=== PATIENT | female | born 1965 | race African-American/Black ===

== ENCOUNTER 2017-02-10 08:15 | Outpatient (RCR) ==
[2016-02-15 21:44] VITALS: BMI 25.8
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
--- NOTE | 2017-02-10 10:35 | RS.OPPTDN ---
Subjective Date of Note: 02/10/17 Visit #: 2 Date of Evaluation: 02/07/17 Payer Source: Insurance Treatment Diagnosis: Right shoulder pain, Low back pain Current Subjective/complaints:: Reports she is doing her HEP. Pain Assessment - Pain Description Pain Location: right shoulder and low back Pain Description: Sharp, Dull, Aching Current Pain Intensity: 5/10 right shoulder Other Comments regarding Pain:: R shoulder sharp pain is position dependent - Heat/Cryotherapy Treatment: Hot Pack (20 mins. prior to exercises,in supine ) Interventions - Exercise/Activities/Manual Therapy Exercises/Activities: 40 mins. total of lumbar exercises,including pelvic tilts, SKTC,DKTC,piriformis stretches.R shoulder PROM ,progressed to AAROM in all planes.Patient education for pain management/joint protection. Total minutes of Exercise: 40 Manual Therapy: N/A Total minutes of Manual Therapy: 0 HOME EXERCISE PROGRAM: pendulum, scapular retraction, and RTC series without weight in a pain-free range,HS and piriformis stretch. - Charges Total Direct Minutes: 40 Total Treatment Time: 60 Procedures billed for this date of service:: hp,ex 3 Assessment: Patient tolerates all lumbarexercises well,reports stretch disconfort only,no sharp pain.She is tighter in the R LE/lumbar ,as opposed to the L LE.She has functional passive ROM in the R shoulder,but has sharp pain present with active IR/ER ,with symptom of possible labrum injury. Patient Education: Education of diagnosis, Body/Joint mechanics, Home Exercise Program, Home Safety, Activity Modification, Education of Plan of Care Patient demonstrates compliance with HEP?: Yes Short Term Goals Goal #1: Pt independent in basic HEP. Goal to be met by: 02/22/17 Progress towards Goal:: Progressing Goal #2: Right SLR to 45 degrees. Goal to be met by: 02/22/17 Goal #3: Right shoulder strength 4/5 into ER/IR. Goal to be met by: 02/22/17 Goal #4: Right hip flexion 5/5. Goal to be met by: 02/22/17 Welding Foreman Goals Goal #1: Pt able to use right UE for ADL's & selfcare with minimal shoulder pain. Goal to be met by: 03/20/17 Goal #2: Pt able to tolerate sitting as needed with minimal low back discomfort. Goal to be met by: 03/20/17 Goal #3: Pt knows HEP and to cont. ex's to maintain functional level at D/C. Goal to be met by: 03/20/17 Progress towards goal: Progressing Goal #4: Pt able to sleep 6 hours without interruption from shoulder or back pain. Goal to be met by: 03/20/17 Plan PLAN OF CARE EXPIRES ON:: 03/20/17 ORDER # VISITS AND/OR THROUGH DATE: 03/20/17 PLAN: Continue Plan of Care
== END 2017-02-12 ==
PROVIDERS: ATTEND Orthopaedic Surgery
DX: M19.011 Primary osteoarthritis, right shoulder (principal); M54.2 Cervicalgia

== ENCOUNTER 2017-03-14 08:00 | Outpatient (RCR) ==
[2016-02-15 21:44] VITALS: BMI 25.8
--- NOTE | 2017-02-14 09:28 | RS.OPPTDN ---
Subjective Date of Note: 02/14/17 Visit #: 3 Date of Evaluation: 02/07/17 Payer Source: Insurance Treatment Diagnosis: Right shoulder pain, Low back pain Current Subjective/complaints:: Reports getting out of her car this morning caused sharp pain for a brief period ,but less now. Pain Assessment - Pain Description Pain Location: right shoulder and low back Current Pain Intensity: not rated today - Heat/Cryotherapy Treatment: Hot Pack (20 mins. to R shoulder and lumbar prior to exercises) Interventions - Exercise/Activities/Manual Therapy Exercises/Activities: 45 mins. total of lumbar exercises,including 3/10 , pelvic tilts,SKTC,DKTC,piriformis stretches.R shoulder PROM ,progressed to AAROM ,then AROM with 3# wand ,then 1# dumbbell for shoulder IR/ER,scaption , chest press,RTC series.Ended with patient ed. for postural exercises/scapular motion. Total minutes of Exercise: 45 Manual Therapy: N/A Total minutes of Manual Therapy: 0 HOME EXERCISE PROGRAM: pendulum, scapular retraction, and RTC series without weight in a pain-free range,HS and piriformis stretch. - Charges Total Direct Minutes: 45 Total Treatment Time: 65 Procedures billed for this date of service:: hp,ex 3 Assessment: Patient tolerate sexercises well today,has R shoulder ROM WNL,with stretch discomfort only today.She has lumbar stretch discomfort ,mostly with R piriformis stretches today.She is very pro-active ,compliant to HEP. Patient Education: Education of diagnosis, Body/Joint mechanics, Home Exercise Program, Home Safety, Activity Modification, Education of Plan of Care Patient demonstrates compliance with HEP?: Yes Short Term Goals Goal #1: Pt independent in basic HEP. Goal to be met by: 02/22/17 Progress towards Goal:: Progressing Goal #2: Right SLR to 45 degrees. Goal to be met by: 02/22/17 Progress towards Goal:: Met Goal #3: Right shoulder strength 4/5 into ER/IR. Goal to be met by: 02/22/17 Progress towards Goal:: Progressing Goal #4: Right hip flexion 5/5. Goal to be met by: 02/22/17 Hydraulic Oil Tool Operator Goals Goal #1: Pt able to use right UE for ADL's & selfcare with minimal shoulder pain. Goal to be met by: 03/20/17 Goal #2: Pt able to tolerate sitting as needed with minimal low back discomfort. Goal to be met by: 03/20/17 Progress towards goal: Progressing Goal #3: Pt knows HEP and to cont. ex's to maintain functional level at D/C. Goal to be met by: 03/20/17 Progress towards goal: Progressing Goal #4: Pt able to sleep 6 hours without interruption from shoulder or back pain. Goal to be met by: 03/20/17 Plan PLAN OF CARE EXPIRES ON:: 03/20/17 ORDER # VISITS AND/OR THROUGH DATE: 03/20/17 PLAN: Continue Plan of Care
--- NOTE | 2017-02-17 09:30 | RS.OPPTDN ---
Subjective Date of Note: 02/17/17 Visit #: 4 Date of Evaluation: 02/07/17 Payer Source: Insurance Treatment Diagnosis: Right shoulder pain, Low back pain Current Subjective/complaints:: Reports the shoulder is oay at this time ,but her back is hurting more ,especially getting out of bed ,or her car.She is doing her HEP regularly. Pain Assessment - Pain Description Pain Location: right shoulder and low back Current Pain Intensity: not rated today - Heat/Cryotherapy Treatment: Hot Pack (20 mins. to R shoulder and low back) Interventions - Exercise/Activities/Manual Therapy Exercises/Activities: 45 mins. total of lumbar exercises,including 3/10 , pelvic tilts,SKTC,DKTC,piriformis stretches.R shoulder PROM ,progressed to AAROM ,then AROM with 3# wand ,then 2# dumbbell for shoulder IR/ER,scaption , chest press,RTC series.Scapular protraction ( boxers punch) in supine. Total minutes of Exercise: 45 Manual Therapy: N/A Total minutes of Manual Therapy: 0 HOME EXERCISE PROGRAM: pendulum, scapular retraction, and RTC series without weight in a pain-free range,HS and piriformis stretch. - Charges Total Direct Minutes: 45 Total Treatment Time: 65 Procedures billed for this date of service:: hp,ex 3 Assessment: Patient tolerates exercises well,has increased tightness today in the R piriformis and IT band today.She has good hamstring extensiblity bilaterally.The R shoulder is WNL ,but intermittent pain during IR/ER ,behaving as possible labrum involvement. Patient Education: Education of diagnosis, Body/Joint mechanics, Home Exercise Program, Home Safety, Activity Modification, Education of Plan of Care Patient demonstrates compliance with HEP?: Yes Short Term Goals Goal #1: Pt independent in basic HEP. Goal to be met by: 02/22/17 Progress towards Goal:: Partially Met Goal #2: Right SLR to 45 degrees. Goal to be met by: 02/22/17 Progress towards Goal:: Met Goal #3: Right shoulder strength 4/5 into ER/IR. Goal to be met by: 02/22/17 Progress towards Goal:: Progressing Goal #4: Right hip flexion 5/5. Goal to be met by: 02/22/17 Progress towards Goal:: Progressing Configuration Release Manager Goals Goal #1: Pt able to use right UE for ADL's & selfcare with minimal shoulder pain. Goal to be met by: 03/20/17 Progress towards goal: Progressing Goal #2: Pt able to tolerate sitting as needed with minimal low back discomfort. Goal to be met by: 03/20/17 Progress towards goal: Progressing Goal #3: Pt knows HEP and to cont. ex's to maintain functional level at D/C. Goal to be met by: 03/20/17 Progress towards goal: Progressing Goal #4: Pt able to sleep 6 hours without interruption from shoulder or back pain. Goal to be met by: 03/20/17 Plan PLAN OF CARE EXPIRES ON:: 03/20/17 ORDER # VISITS AND/OR THROUGH DATE: 03/20/17 PLAN: Progress Exercises
--- NOTE | 2017-02-20 09:34 | RS.OPPTDN ---
Subjective Date of Note: 02/20/17 Visit #: 5 Date of Evaluation: 02/07/17 Payer Source: Insurance Treatment Diagnosis: Right shoulder pain, Low back pain Current Subjective/complaints:: Patient reports the R shoulder is doing well today ,but her back continues to have intense,sudden pain with certain positions. Pain Assessment - Pain Description Pain Location: right shoulder and low back Current Pain Intensity: not rated today - Heat/Cryotherapy Treatment: Hot Pack (20 mins. to R shoulder and lumbar area) Interventions - Exercise/Activities/Manual Therapy Exercises/Activities: 45 mins. total of lumbar exercises,including therapy ball exercises,in sitting for alternate UE/LE,also in standing for same exercises.Supine stretches of SKTC,DKTC,pelvic tilts,90/90 hamstring stretches.Multi -gym postural pullbacks ,3/10 for 2 different heights(waist level and pull down from overhead),then yellow theraband for standing pull-ups with elbows in full extension. Total minutes of Exercise: 45 Manual Therapy: N/A Total minutes of Manual Therapy: 0 HOME EXERCISE PROGRAM: pendulum, scapular retraction, and RTC series without weight in a pain-free range,HS and piriformis stretch. - Charges Total Direct Minutes: 45 Total Treatment Time: 65 Procedures billed for this date of service:: hp,ex 3 Assessment: Patient tolerates exercises well,reports he rback pain is intense at times with ADL's ,dependent upon position,but has no ROM deficits with lumbar motion today.The R shoulder/UE fatigues easily with resistive exercises.She is aware of the R shoullder damage ,understands to always use light resistance while exercising.She is highly motivated to improve. Patient Education: Education of diagnosis, Body/Joint mechanics, Home Exercise Program, Home Safety, Activity Modification, Education of Plan of Care Patient demonstrates compliance with HEP?: Yes Short Term Goals Goal #1: Pt independent in basic HEP. Goal to be met by: 02/22/17 Progress towards Goal:: Partially Met Goal #2: Right SLR to 45 degrees. Goal to be met by: 02/22/17 Progress towards Goal:: Met Goal #3: Right shoulder strength 4/5 into ER/IR. Goal to be met by: 02/22/17 Progress towards Goal:: Progressing Goal #4: Right hip flexion 5/5. 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 Goal to be met by: 03/20/17 Progress towards goal: Progressing Goal #2: Pt able to tolerate sitting as needed with minimal low back discomfort. Goal to be met by: 03/20/17 Progress towards goal: Partially Met Goal #3: Pt knows HEP and to cont. ex's to maintain functional level at D/C. Goal to be met by: 03/20/17 Progress towards goal: Met Goal #4: Pt able to sleep 6 hours without interruption from shoulder or back pain. Goal to be met by: 03/20/17 (N/A) Plan PLAN OF CARE EXPIRES ON:: 03/20/17 ORDER # VISITS AND/OR THROUGH DATE: 03/20/17 PLAN: Progress Exercises
--- NOTE | 2017-02-24 10:21 | RS.OPPTDN ---
Subjective Date of Note: 02/24/17 Visit #: 6 Date of Evaluation: 02/07/17 Payer Source: Insurance Treatment Diagnosis: Right shoulder pain, Low back pain Current Subjective/complaints:: Reports increased aching and back pain today, she feels possibly this is due to the rainy weather. Pain Assessment - Pain Description Pain Location: right shoulder and low back Pain Description: Sharp, Dull, Aching Current Pain Intensity: moderate at rest Worst Pain Intensity: 10 in the back with certain positions,such as getting out of bed or the car - Heat/Cryotherapy Treatment: Hot Pack (20 mins. to R shoulder and lumbar area in supine) Interventions - Exercise/Activities/Manual Therapy Exercises/Activities: 35 mins. total of lumbar exercises,including supine DKTC, pelvic tilts,pelvic tilts combined with SLR's for core strengthening.Prone stretches to hip flexors,prone on elbows.Quadruped position of cat back stretches.HEP review and pain management. Total minutes of Exercise: 35 Manual Therapy: N/A Total minutes of Manual Therapy: 0 HOME EXERCISE PROGRAM: pendulum, scapular retraction, and RTC series without weight in a pain-free range,HS and piriformis stretch. - Charges Total Direct Minutes: 35 Total Treatment Time: 55 Procedures billed for this date of service:: hp,ex 2 Assessment: Patient has increased hip flexor tightness,as compared to the L,but responds well to all stretches.She also reports increased tightness with supine stretches today. Patient Education: Education of diagnosis, Body/Joint mechanics, Home Exercise Program, Home Safety, Activity Modification, Education of Plan of Care Patient demonstrates compliance with HEP?: Yes Short Term Goals Goal #1: Pt independent in basic HEP. Goal to be met by: 02/22/17 Progress towards Goal:: Met Goal #2: Right SLR to 45 degrees. Goal to be met by: 02/22/17 Progress towards Goal:: Met Goal #3: Right shoulder strength 4/5 into ER/IR. Goal to be met by: 02/22/17 Progress towards Goal:: Progressing Goal #4: Right hip flexion 5/5. Goal to be met by: 02/22/17 Progress towards Goal:: Progressing Family Services Coordinator Goals Goal #1: Pt able to use right UE for ADL's & selfcare with minimal shoulder pain. Goal to be met by: 03/20/17 Goal #2: Pt able to tolerate sitting as needed with minimal low back discomfort. Goal to be met by: 03/20/17 Progress towards goal: Partially Met Goal #3: Pt knows HEP and to cont. ex's to maintain functional level at D/C. Goal to be met by: 03/20/17 Progress towards goal: Met Goal #4: Pt able to sleep 6 hours without interruption from shoulder or back pain. Goal to be met by: 03/20/17 (N/A) Plan PLAN OF CARE EXPIRES ON:: 03/20/17 ORDER # VISITS AND/OR THROUGH DATE: 03/20/17 PLAN: Continue Plan of Care
--- NOTE | 2017-03-03 09:24 | RS.OPPTDN ---
Subjective Date of Note: 03/03/17 Visit #: 7 Date of Evaluation: 02/07/17 Payer Source: Insurance Treatment Diagnosis: Right shoulder pain, Low back pain Current Subjective/complaints:: Patient reports the back is better today,as compared to earlier in the week.The shoulder pain is about the same,but has learned to tolerate the pain.She is highly motivated to improve. Pain Assessment - Pain Description Pain Location: right shoulder and low back Pain Description: Dull, Aching Current Pain Intensity: R shoulder 3/10,back is 5/10 - Heat/Cryotherapy Treatment: Hot Pack (20 mins. prior to exercises) Interventions - Exercise/Activities/Manual Therapy Exercises/Activities: 40 mins. total of lumbar exercises,including supine DKTC, pelvic tilts,pelvic tilts combined with SLR's for core strengthening. 4# weights for bilateral hip flexion in hooklying and 4-pt.quads,3/15 reps.Isometric hip abd/add,3/5 each. Total minutes of Exercise: 40 Manual Therapy: N/A Total minutes of Manual Therapy: 0 HOME EXERCISE PROGRAM: pendulum, scapular retraction, and RTC series without weight in a pain-free range,HS and piriformis stretch. - Charges Total Direct Minutes: 40 Total Treatment Time: 60 Procedures billed for this date of service:: hp,ex 3 Assessment: Progressing well,for low back care.The R shoulder is basically the same ,continues to have functional motion ,and understands we will not progress the resistance for strengthening as she has RTC tear. Patient Education: Education of diagnosis, Body/Joint mechanics, Home Exercise Program, Home Safety, Activity Modification, Education of Plan of Care Patient demonstrates compliance with HEP?: Yes Short Term Goals Goal #1: Pt independent in basic HEP. Goal to be met by: 02/22/17 Progress towards Goal:: Met Goal #2: Right SLR to 45 degrees. Goal to be met by: 02/22/17 Progress towards Goal:: Met Goal #3: Right shoulder strength 4/5 into ER/IR. Goal to be met by: 02/22/17 Progress towards Goal:: No Change Comments:: Patient to use caution due RTC tear,no progressive resistance Goal #4: Right hip flexion 5/5. 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 Goal to be met by: 03/20/17 Progress towards goal: Progressing Goal #2: Pt able to tolerate sitting as needed with minimal low back discomfort. Goal to be met by: 03/20/17 Progress towards goal: Partially Met Goal #3: Pt knows HEP and to cont. ex's to maintain functional level at D/C. Goal to be met by: 03/20/17 Progress towards goal: Met Goal #4: Pt able to sleep 6 hours without interruption from shoulder or back pain. Goal to be met by: 03/20/17 (N/A) Plan PLAN OF CARE EXPIRES ON:: 03/20/17 ORDER # VISITS AND/OR THROUGH DATE: 03/20/17 PLAN: Continue Plan of Care
--- NOTE | 2017-03-08 11:00 | RS.OPPTDN ---
Subjective Date of Note: 03/08/17 Visit #: 8 Date of Evaluation: 02/07/17 Payer Source: Insurance Treatment Diagnosis: Right shoulder pain, Low back pain Current Subjective/complaints:: Reports the R shoulder and low back pain is ," not too bad" this morning. Pain Assessment - Pain Description Pain Location: right shoulder and low back Pain Description: Dull, Aching Current Pain Intensity: R shoulder 3/10,back is 5/10 - Heat/Cryotherapy Treatment: Hot Pack (20 mins. to R shoulder and lumbar ) Interventions - Exercise/Activities/Manual Therapy Exercises/Activities: 40 mins. total of R shoulder AROM in all directions with 3 #, lumbar exercises,including supine DKTC,pelvic tilts,pelvic tilts combined with SLR's for core strengthening. 5# weights for bilateral hip flexion in hooklying ,3/15 reps.Isometric hip abd/add,3/5 each.Added SI muscle energy exercises today of resisted hip flexion ,then resisted knee extension ,both in hooklying position. Total minutes of Exercise: 40 Manual Therapy: N/A Total minutes of Manual Therapy: 0 HOME EXERCISE PROGRAM: pendulum, scapular retraction, and RTC series without weight in a pain-free range,HS and piriformis stretch. - Charges Total Direct Minutes: 40 Total Treatment Time: 60- Procedures billed for this date of service:: hp,ex 3 Assessment: Progressing well,has increased R shoulder strength present with minimal pain at end range of ER.She has improved core strength,give good return demo of each exercise.She reports fatigue as exercises progress,but no sharp pain present. Patient Education: Education of diagnosis, Body/Joint mechanics, Home Exercise Program, Home Safety, Activity Modification, Education of Plan of Care Patient demonstrates compliance with HEP?: Yes Short Term Goals Goal #1: Pt independent in basic HEP. Goal to be met by: 02/22/17 Progress towards Goal:: Met Goal #2: Right SLR to 45 degrees. Goal to be met by: 02/22/17 Progress towards Goal:: Met Goal #3: Right shoulder strength 4/5 into ER/IR. Goal to be met by: 02/22/17 Progress towards Goal:: Partially Met Goal #4: Right hip flexion 5/5. 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 Goal to be met by: 03/20/17 Progress towards goal: Progressing Goal #2: Pt able to tolerate sitting as needed with minimal low back discomfort. Goal to be met by: 03/20/17 Progress towards goal: Partially Met Goal #3: Pt knows HEP and to cont. ex's to maintain functional level at D/C. Goal to be met by: 03/20/17 Progress towards goal: Met Goal #4: Pt able to sleep 6 hours without interruption from shoulder or back pain. Goal to be met by: 03/20/17 (N/A) Progress towards goal: Progressing Plan PLAN OF CARE EXPIRES ON:: 03/20/17 ORDER # VISITS AND/OR THROUGH DATE: 03/20/17 PLAN: Continue Plan of Care
--- NOTE | 2017-03-14 09:29 | RS.OPPTDC ---
Date of Discharge: 03/14/17 Date of Evaluation: 02/07/17 Number of Visits: 9 Treatment Diagnosis: Right shoulder pain, Low back pain Current Level of Function: Independent in community with intermittent R shoulder and lumbar pain. Current Complaints/Gains: Pleased with her progress,agrees with D/C plan today.She reports dull ache in R shoulder and low back ,but tolerable. Pain Assessment - Pain Description Pain Location: right shoulder and low back Pain Description: Dull, Aching Current Pain Intensity: not rated Functional Outcome Measure UE Functional Index: 71 - G Codes & Severity Modifier G Codes & Modifier: NA Source of G Code score: NA Observation - Observation Posture: Normal Handedness: Right Gait - Gait Pattern General Gait Pattern Observation: No Deviations/Normal - Heat/Cryotherapy Treatment: Hot Pack (20 mins. prior to R shoulder and lumbar) Interventions - Exercise/Activities/Manual Therapy Exercises/Activities: 25 mins. HEP review for R shoulder and low back stretching and strengthening. Total minutes of Exercise: 25 Manual Therapy: N/A Total minutes of Manual Therapy: 0 HOME EXERCISE PROGRAM: pendulum, scapular retraction, and RTC series without weight in a pain-free range,HS and piriformis stretch. - Charges Total Direct Minutes: 25 Total Treatment Time: 45 Procedures billed for this date of service:: hp,ex 2 Assessment Assessment: Patient has progressed well,met or partially met each rehab goals.She has excellent understanding and return demo of each exercise.She agrees with D/C plan today. Patient Education: Education of diagnosis, Body/Joint mechanics, Home Exercise Program, Home Safety, Activity Modification, Education of Plan of Care Rehab Potential: Good Short Term Goals Goal #1: Pt independent in basic HEP. Goal to be met by: 02/22/17 Progress towards Goal:: Met Goal #2: Right SLR to 45 degrees. Goal to be met by: 02/22/17 Progress towards Goal:: Met Goal #3: Right shoulder strength 4/5 into ER/IR. Goal to be met by: 02/22/17 Progress towards Goal:: Partially Met Goal #4: Right hip flexion 5/5. Goal to be met by: 02/22/17 Progress towards Goal:: Partially Met Custodial Goals Goal #1: Pt able to use right UE for ADL's & selfcare with minimal shoulder pain. Goal to be met by: 03/20/17 Progress towards goal: Met Goal #2: Pt able to tolerate sitting as needed with minimal low back discomfort. Goal to be met by: 03/20/17 Progress towards goal: Met Goal #3: Pt knows HEP and to cont. ex's to maintain functional level at D/C. Goal to be met by: 03/20/17 Progress towards goal: Met Goal #4: Pt able to sleep 6 hours without interruption from shoulder or back pain. Goal to be met by: 03/20/17 (N/A) Progress towards goal: Partially Met Plan Reason for Discharge:: No Further Skilled Therapy Indicated
== END 2017-03-15 ==
PROVIDERS: ATTEND Orthopaedic Surgery
DX: M19.011 Primary osteoarthritis, right shoulder (principal); M25.511 Pain in right shoulder; M54.5 Low back pain

== ENCOUNTER 2017-05-02 09:08 | Outpatient (CLI) ==
[2016-02-15 21:44] VITALS: BMI 25.8
--- NOTE | 2017-05-02 10:16 | DEXA ---
EXAM: BONE DENSITOMETRY HISTORY: Screening for osteoporosis. Menopause FINDINGS: Exam of the lumbar spine demonstrated a total bone mineral density of 1.314 g/cm2. T score is 1.1. Age-matched Z score is 0.6. Exam of the hips revealed a total mean bone mineral density of 1.010 g/cm2. Mean hip T score: 0.0 Mean hip age-matched Z score: -0.7 Study quality: Adequate. Comparison date: No comparison data included. FRAX WHO Fracture Risk Assessment. Ten year probability of fracture (%). Major Osteoporotic Fracture 2.3% Hip Fracture 0.1%. IMPRESSION: 1. Values presented indicate normal bone density of the spine. 2. Values presented indicate normal bone density of the hips.
--- NOTE | 2017-05-03 08:37 | MAMMO ---
EXAM: Bilateral digital screening mammogram History: Screening Comparison: Bilateral mammogram 04/25/2016 Findings: MLO and CC views of bilateral breasts demonstrate heterogeneously dense breast parenchyma which can obscure small lesions. Biopsy clip again seen within the right breast. Focal asymmetry within the central minute right breast and seen only on the MLO view. No suspicious microcalcificat ions. Impression: Indeterminate focal asymmetry within the right breast seen only on the MLO view. Recom mend further evaluation with spot compression views and a ML view. BIRADS 0
== END 2017-05-02 09:09 | disposition home or self-care (01) ==
LOC: RAD 09:08
PROVIDERS: ATTEND Physician Assistant Medical
DX: Z12.31 Encounter for screening mammogram for malignant neoplasm of breast (principal); Z78.0 Asymptomatic menopausal state